=== PATIENT | male | born 1950 | race Caucasian/White ===

== ENCOUNTER 2018-07-20 07:19 | Inpatient (IN) | payer OTHER ==
[~2018-07-20] VITALS: Ht 175.3 cm; Wt 196.2 kg
[2018-07-20] MEDS ORDERED: WARF5TAB PO (07:48)
[2018-07-20] MEDS ORDERED: ACETAMINOPHEN 500 MG TABLET ONE (07:51)
[2018-07-20] MEDS ORDERED: ALBUTEROL/IPRATROPIUM 2.5MG/0.5MG, 3 ML ONE (07:57)
[2018-07-20] MEDS ORDERED: SODIUM CHLORIDE FLUSH 10ML SYR IVF ONE (08:00)
[2018-07-20] MEDS ORDERED: ACETAMINOPHEN 500 MG TABLET PO ONE (08:00)
[2018-07-20] MEDS ORDERED: SODIUM CHLORIDE 0.9% 1,000ML IVBOLUS ONE (08:00)
[2018-07-20] MEDS: ALBUTEROL/IPRATROPIUM 2.5MG/0.5MG, 3 ML NPPB SCH ×2 (08:03→08:11)
[2018-07-20 08:14] LABS: RAPID INFLUENZA A Negative (Negative); RAPID INFLUENZA B Negative (Negative)
[2018-07-20 08:21] LABS: BASOPHILS % (AUTO) 0 % (0-1); EOSINOPHILS % (AUTO) 0 % (1-7); LYMPHOCYTES # (AUTO) 0.86 x10^3/uL (1-3.4); LYMPHOCYTES % (AUTO) 9 % (22-44); MD NO; MEAN CORPUSCULAR HEMOGLOBIN 33.3 pg (27.5-34.5); MEAN CORPUSCULAR HGB CONC 33.7 g/dL (33.2-36.2); MEAN CORPUSCULAR VOLUME 98.8 fL (81-97); MEAN PLATELET VOLUME 8.1 fL (7.4-10.4); MONOCYTES # (AUTO) 0.75 x10^3/uL (0.2-0.8); MONOCYTES % (AUTO) 8 % (2-9); NEUTROPHILS % (AUTO) 84 % (42-75); PLATELET COUNT 144 x10^3/uL (130-400); RED BLOOD COUNT 3.77 x10^6/uL (4.38-5.82); RED CELL DISTRIBUTION WIDTH 15.9 % (9.4-14.8)
[2018-07-20 08:26] LABS: INTERNATIONAL NORMALIZED RATIO 1.2 (0.93-1.1); PROTHROMBIN TIME 12.6 Seconds (9.6-11.5)
[2018-07-20 08:29] LABS: ALANINE AMINOTRANSFERASE 19 U/L (12-78); ALBUMIN 3.3 g/dL (3.4-5.0); ANION GAP 8 mmol/L (5-15); CHLORIDE 107 mmol/L (98-107); CREATININE 1.47 mg/dL (0.7-1.3)
[2018-07-20 08:32] LABS: ALKALINE PHOSPHATASE 82 U/L (45-117); BILIRUBIN,TOTAL 1.8 mg/dL (0.2-1.0); TOTAL PROTEIN 7.2 g/dL (6.4-8.2)
[2018-07-20] MEDS ORDERED: DILTIAZEM 5 MG/ML, 5ML IVPush STA (08:43)
[2018-07-20] MEDS ORDERED: DILTIAZEM 5 MG/ML, 5ML ONE (09:01)
[2018-07-20] MEDS: DILTIAZEM 125 MG in DEXTROSE 5% 100 ML IV SCH ×2 (09:24→13:33)
[2018-07-20 10:02] LABS: CULTURE INDICATED? YES; MICROSCOPIC INDICATED
[2018-07-20] MEDS ORDERED: AZITHROMYCIN 500 MG in SODIUM CHLORIDE 0.9% 250 ML IV ONE (11:00)
[2018-07-20] MEDS ORDERED: CEFTRIAXONE PMX 1GM/50ML 50 ML IV ONE (11:00)
[2018-07-20] MEDS ORDERED: PLEASE ENTER ALLERGIES MC SCH (11:00)
[2018-07-20] MEDS ORDERED: CEFAZOLIN PMX 1GM/50ML 50 ML ONE (11:38)
[2018-07-20 13:13] VITALS: BP 134/83
[2018-07-20 13:31] VITALS: BP 134/83
[2018-07-20] MEDS: DILTIAZEM 60 MG TABLET PO SCH ×2 (15:00→21:11)
[2018-07-20] MEDS ORDERED: TERA10CA3 PO (15:08)
[2018-07-20] MEDS ORDERED: FOLI1TAB PO (15:08)
[2018-07-20] MEDS ORDERED: ALLO300T PO (15:08)
[2018-07-20] MEDS ORDERED: LEVO100T PO (15:08)
[2018-07-20] MEDS ORDERED: METO-282 PO (15:08)
[2018-07-20] MEDS ORDERED: LISI40TA PO (15:08)
[2018-07-20] MEDS ORDERED: METF-365 PO (15:08)
[2018-07-20] MEDS ORDERED: FINA5TAB4 PO (15:08)
[2018-07-20] MEDS ORDERED: DABI150C PO (15:08)
[2018-07-20] MEDS ORDERED: SIMV20TA3 PO (15:08)
[2018-07-20] MEDS ORDERED: PREG200C PO (15:08)
[2018-07-20] MEDS ORDERED: DILTIAZEM 120 MG TABLET ONE (16:16)
[2018-07-20] MEDS: CEFTRIAXONE PMX 2GM/50ML 50 ML IV SCH (16:18)
[2018-07-20] MEDS ORDERED: DEXTROSE 50%, 50ML SYRINGE ONE (16:30)
[2018-07-20 16:33] LABS: HEMOGLOBIN A1C 6.6 % (4.2-6.3)
[2018-07-20] MEDS ORDERED: METOPROLOL TARTRATE 25 MG TABLET PO SCH (18:00)
[2018-07-20 18:39] VITALS: BP 116/74
[2018-07-20] MEDS: AMLODIPINE 5 MG TABLET PO SCH (21:00)
[2018-07-20] MEDS ORDERED: DABIGATRAN 150 MG CAPSULE PO SCH (21:00)
[2018-07-20 21:09] VITALS: BP 125/73
[2018-07-20] MEDS: PREGABALIN 200 MG CAPSULE PO SCH (21:12)
[2018-07-20] MEDS: SIMVASTATIN 20 MG TABLET PO SCH (21:12)
[2018-07-20] MEDS: METOPROLOL SUCCINATE 25 MG TAB.ER.24H PO SCH (21:12)
[2018-07-20] MEDS: ALLOPURINOL 300 MG TABLET PO SCH (21:13)
[2018-07-20] MEDS: DABIGATRAN 150 MG CAPSULE PO SCH (21:13)
[2018-07-20] MEDS: TERAZOSIN 5MG CAPSULE PO SCH (21:16)
[2018-07-20] MEDS: INSULIN LISPRO 100 UNITS/ML, PEN SQ-INSULIN SCH (23:07)
[2018-07-21 00:14] VITALS: BP 102/69
[2018-07-21] MEDS: DILTIAZEM 60 MG TABLET PO SCH ×4 (03:00→21:21)
[2018-07-21] MEDS: LEVOTHYROXINE 100 MCG TABLET PO SCH (05:07)
[2018-07-21 06:12] LABS: ANION GAP 7 mmol/L (5-15); CALCIUM 8.4 mg/dL (8.5-10.1); CHLORIDE 108 mmol/L (98-107); CREATININE 1.43 mg/dL (0.7-1.3)
[2018-07-21 06:44] VITALS: BP 105/73
[2018-07-21] MEDS: INSULIN LISPRO 100 UNITS/ML, PEN SQ-INSULIN SCH ×4 (07:00→21:00)
[2018-07-21] MEDS: FINASTERIDE 5 MG TABLET PO SCH (08:30)
[2018-07-21] MEDS: PREGABALIN 200 MG CAPSULE PO SCH ×2 (08:30→21:20)
[2018-07-21] MEDS: LISINOPRIL 20 MG TABLET PO SCH (08:31)
[2018-07-21] MEDS: AMLODIPINE 5 MG TABLET PO SCH ×2 (08:31→21:00)
[2018-07-21] MEDS: METOPROLOL SUCCINATE 25 MG TAB.ER.24H PO SCH ×2 (08:31→21:22)
[2018-07-21] MEDS: MULTIVITAMINS/MINERALS TABLET PO SCH (08:31)
[2018-07-21 13:36] VITALS: BP 110/78
[2018-07-21] MEDS: CEFTRIAXONE PMX 2GM/50ML 50 ML IV SCH (14:46)
[2018-07-21 19:12] VITALS: BP 107/66
[2018-07-21 21:00] VITALS: BP 123/68
[2018-07-21] MEDS: DABIGATRAN 150 MG CAPSULE PO SCH (21:21)
[2018-07-21] MEDS: TERAZOSIN 5MG CAPSULE PO SCH (21:21)
[2018-07-21] MEDS: SIMVASTATIN 20 MG TABLET PO SCH (21:22)
[2018-07-21] MEDS: ALLOPURINOL 300 MG TABLET PO SCH (21:24)
[2018-07-21] MEDS: INSULIN GLARGINE 100 UNITS/ML, PEN SQ-INSULIN SCH (22:18)
[2018-07-22] VITALS (7 sets, daily range): BP systolic 91–135; BP diastolic 49–76
[2018-07-22] MEDS: DILTIAZEM 60 MG TABLET PO SCH ×4 (03:31→21:44)
[2018-07-22] MEDS: LEVOTHYROXINE 100 MCG TABLET PO SCH (05:29)
[2018-07-22] MEDS: INSULIN LISPRO 100 UNITS/ML, PEN SQ-INSULIN SCH ×4 (07:00→21:42)
[2018-07-22] MEDS: MULTIVITAMINS/MINERALS TABLET PO SCH (08:13)
[2018-07-22] MEDS: PREGABALIN 200 MG CAPSULE PO SCH ×2 (08:13→21:44)
[2018-07-22] MEDS: FINASTERIDE 5 MG TABLET PO SCH (08:13)
[2018-07-22] MEDS: AMLODIPINE 5 MG TABLET PO SCH ×2 (08:23→21:43)
[2018-07-22] MEDS: METOPROLOL SUCCINATE 25 MG TAB.ER.24H PO SCH ×2 (08:24→21:43)
[2018-07-22] MEDS: LISINOPRIL 20 MG TABLET PO SCH (08:24)
[2018-07-22] MEDS: CEFTRIAXONE PMX 2GM/50ML 50 ML IV SCH (15:08)
[2018-07-22] MEDS: INSULIN GLARGINE 100 UNITS/ML, PEN SQ-INSULIN SCH (21:43)
[2018-07-22] MEDS: ALLOPURINOL 300 MG TABLET PO SCH (21:44)
[2018-07-22] MEDS: SIMVASTATIN 20 MG TABLET PO SCH (21:44)
[2018-07-22] MEDS: DABIGATRAN 150 MG CAPSULE PO SCH (21:44)
[2018-07-22] MEDS: TERAZOSIN 5MG CAPSULE PO SCH (21:49)
[2018-07-23 01:58] VITALS: BP 130/72
[2018-07-23] MEDS: DILTIAZEM 60 MG TABLET PO SCH ×4 (03:27→21:32)
[2018-07-23] MEDS: LEVOTHYROXINE 100 MCG TABLET PO SCH (06:00)
[2018-07-23 06:35] VITALS: BP 122/76
[2018-07-23] MEDS: INSULIN LISPRO 100 UNITS/ML, PEN SQ-INSULIN SCH ×4 (07:00→21:33)
[2018-07-23] MEDS: PREGABALIN 200 MG CAPSULE PO SCH ×2 (09:01→21:32)
[2018-07-23] MEDS: FINASTERIDE 5 MG TABLET PO SCH (09:01)
[2018-07-23] MEDS: MULTIVITAMINS/MINERALS TABLET PO SCH (09:01)
[2018-07-23] MEDS: METOPROLOL SUCCINATE 25 MG TAB.ER.24H PO SCH ×2 (09:56→21:32)
[2018-07-23] MEDS: AMLODIPINE 5 MG TABLET PO SCH ×2 (09:56→21:31)
[2018-07-23] MEDS: LISINOPRIL 20 MG TABLET PO SCH (09:56)
[2018-07-23 13:52] VITALS: BP 106/77
[2018-07-23] MEDS: CEFTRIAXONE PMX 2GM/50ML 50 ML IV SCH (14:58)
[2018-07-23 21:02] VITALS: BP 154/84
[2018-07-23] MEDS: TERAZOSIN 5MG CAPSULE PO SCH (21:31)
[2018-07-23] MEDS: DABIGATRAN 150 MG CAPSULE PO SCH (21:31)
[2018-07-23] MEDS: SIMVASTATIN 20 MG TABLET PO SCH (21:32)
[2018-07-23] MEDS: ALLOPURINOL 300 MG TABLET PO SCH (21:32)
[2018-07-23] MEDS: INSULIN GLARGINE 100 UNITS/ML, PEN SQ-INSULIN SCH (21:33)
[2018-07-24 01:00] VITALS: BP 99/68
[2018-07-24] MEDS: DILTIAZEM 60 MG TABLET PO SCH ×4 (03:00→22:35)
[2018-07-24] MEDS: LEVOTHYROXINE 100 MCG TABLET PO SCH (06:00)
[2018-07-24 06:48] VITALS: BP 127/86
[2018-07-24] MEDS: INSULIN LISPRO 100 UNITS/ML, PEN SQ-INSULIN SCH ×4 (08:37→20:50)
[2018-07-24] MEDS: MULTIVITAMINS/MINERALS TABLET PO SCH (08:38)
[2018-07-24] MEDS: METOPROLOL SUCCINATE 25 MG TAB.ER.24H PO SCH ×2 (08:38→20:49)
[2018-07-24] MEDS: AMLODIPINE 5 MG TABLET PO SCH ×2 (08:38→20:49)
[2018-07-24] MEDS: FINASTERIDE 5 MG TABLET PO SCH (08:38)
[2018-07-24] MEDS: PREGABALIN 200 MG CAPSULE PO SCH ×2 (08:38→20:49)
[2018-07-24] MEDS: LISINOPRIL 20 MG TABLET PO SCH (08:38)
[2018-07-24 12:16] VITALS: BP 105/69
[2018-07-24] MEDS: CEFTRIAXONE PMX 2GM/50ML 50 ML IV SCH (14:51)
[2018-07-24 19:55] VITALS: BP 145/99
[2018-07-24] MEDS: TERAZOSIN 5MG CAPSULE PO SCH (20:48)
[2018-07-24] MEDS: SIMVASTATIN 20 MG TABLET PO SCH (20:49)
[2018-07-24] MEDS: ALLOPURINOL 300 MG TABLET PO SCH (20:49)
[2018-07-24] MEDS: DABIGATRAN 150 MG CAPSULE PO SCH (20:49)
[2018-07-24] MEDS: INSULIN GLARGINE 100 UNITS/ML, PEN SQ-INSULIN SCH (20:50)
[2018-07-24 22:32] VITALS: BP 146/78
[2018-07-24] MEDS: ACETAMINOPHEN 325 MG TABLET PO PRN (22:35)
[2018-07-25] VITALS (8 sets, daily range): BP systolic 116–158; BP diastolic 75–89
[2018-07-25] MEDS: DILTIAZEM 60 MG TABLET PO SCH ×4 (05:18→22:33)
[2018-07-25] MEDS: LEVOTHYROXINE 100 MCG TABLET PO SCH (05:18)
[2018-07-25 05:20] LABS: BASOPHILS # (AUTO) 0.01 x10^3/uL (0-0.1); BASOPHILS % (AUTO) 0 % (0-1); EOSINOPHILS % (AUTO) 1 % (1-7); LYMPHOCYTES # (AUTO) 0.96 x10^3/uL (1-3.4); LYMPHOCYTES % (AUTO) 8 % (22-44); MD NO; MEAN CORPUSCULAR HEMOGLOBIN 33.1 pg (27.5-34.5); MEAN CORPUSCULAR HGB CONC 32.9 g/dL (33.2-36.2); MEAN CORPUSCULAR VOLUME 100.4 fL (81-97); MEAN PLATELET VOLUME 8.2 fL (7.4-10.4); MONOCYTES # (AUTO) 0.56 x10^3/uL (0.2-0.8); MONOCYTES % (AUTO) 5 % (2-9); NEUTROPHILS # (AUTO) 10.84 x10^3/uL (1.8-6.8); NEUTROPHILS % (AUTO) 87 % (42-75); PLATELET COUNT 225 x10^3/uL (130-400); RED BLOOD COUNT 3.72 x10^6/uL (4.38-5.82); RED CELL DISTRIBUTION WIDTH 16.3 % (9.4-14.8)
[2018-07-25 05:26] LABS: ANION GAP 5 mmol/L (5-15); CHLORIDE 105 mmol/L (98-107); CREATININE 1.01 mg/dL (0.7-1.3)
[2018-07-25] MEDS: INSULIN LISPRO 100 UNITS/ML, PEN SQ-INSULIN SCH ×5 (07:00→20:19)
[2018-07-25] MEDS: METOPROLOL SUCCINATE 25 MG TAB.ER.24H PO SCH ×2 (08:52→20:14)
[2018-07-25] MEDS: MULTIVITAMINS/MINERALS TABLET PO SCH (08:52)
[2018-07-25] MEDS: AMLODIPINE 5 MG TABLET PO SCH ×2 (08:52→20:15)
[2018-07-25] MEDS: PREGABALIN 200 MG CAPSULE PO SCH ×2 (08:52→20:14)
[2018-07-25] MEDS: FINASTERIDE 5 MG TABLET PO SCH (08:53)
[2018-07-25] MEDS: LISINOPRIL 20 MG TABLET PO SCH (08:53)
[2018-07-25] MEDS: ACETAMINOPHEN 325 MG TABLET PO PRN ×2 (11:24→20:15)
[2018-07-25] MEDS: CEFTRIAXONE PMX 2GM/50ML 50 ML IV SCH (16:05)
[2018-07-25] MEDS: DABIGATRAN 150 MG CAPSULE PO SCH (20:14)
[2018-07-25] MEDS: TERAZOSIN 5MG CAPSULE PO SCH (20:15)
[2018-07-25] MEDS: SIMVASTATIN 20 MG TABLET PO SCH (20:15)
[2018-07-25] MEDS: ALLOPURINOL 300 MG TABLET PO SCH (20:15)
[2018-07-25] MEDS: INSULIN GLARGINE 100 UNITS/ML, PEN SQ-INSULIN SCH (20:19)
[2018-07-26 01:22] VITALS: BP 122/77
[2018-07-26 04:54] VITALS: BP 129/77
[2018-07-26] MEDS: DILTIAZEM 60 MG TABLET PO SCH ×2 (04:58→11:08)
[2018-07-26] MEDS: LEVOTHYROXINE 100 MCG TABLET PO SCH (04:58)
[2018-07-26 06:31] VITALS: BP 149/83
[2018-07-26] MEDS: INSULIN LISPRO 100 UNITS/ML, PEN SQ-INSULIN SCH ×4 (08:05→20:56)
[2018-07-26] MEDS: METOPROLOL SUCCINATE 25 MG TAB.ER.24H PO SCH ×2 (08:06→20:56)
[2018-07-26] MEDS: FINASTERIDE 5 MG TABLET PO SCH (08:06)
[2018-07-26] MEDS: AMLODIPINE 5 MG TABLET PO SCH ×2 (08:06→20:55)
[2018-07-26] MEDS: LISINOPRIL 20 MG TABLET PO SCH (08:06)
[2018-07-26] MEDS: MULTIVITAMINS/MINERALS TABLET PO SCH (08:06)
[2018-07-26] MEDS: PREGABALIN 200 MG CAPSULE PO SCH ×2 (08:06→20:55)
[2018-07-26] MEDS: CEFDINIR 300 MG CAPSULE PO SCH ×2 (11:14→20:56)
[2018-07-26 12:00] VITALS: BP 125/70
[2018-07-26] MEDS ORDERED: POLYETHYLENE GLYCOL 17 GM PACKET PO PRN (18:00)
[2018-07-26 20:37] VITALS: BP 158/87
[2018-07-26] MEDS: DOCUSATE 100 MG CAPSULE PO SCH (20:54)
[2018-07-26] MEDS: TERAZOSIN 5MG CAPSULE PO SCH (20:55)
[2018-07-26] MEDS: DABIGATRAN 150 MG CAPSULE PO SCH (20:56)
[2018-07-26] MEDS: ALLOPURINOL 300 MG TABLET PO SCH (20:56)
[2018-07-26] MEDS: SIMVASTATIN 20 MG TABLET PO SCH (20:56)
[2018-07-26] MEDS: INSULIN GLARGINE 100 UNITS/ML, PEN SQ-INSULIN SCH (20:57)
[2018-07-27 02:52] VITALS: BP 119/66
[2018-07-27] MEDS ORDERED: LEVOTHYROXINE 112 MCG TABLET PO SCH (06:00)
[2018-07-27 06:24] VITALS: BP 141/84
[2018-07-27] MEDS: FINASTERIDE 5 MG TABLET PO SCH (08:23)
[2018-07-27] MEDS: METOPROLOL SUCCINATE 25 MG TAB.ER.24H PO SCH (08:23)
[2018-07-27] MEDS: AMLODIPINE 5 MG TABLET PO SCH (08:23)
[2018-07-27] MEDS: INSULIN LISPRO 100 UNITS/ML, PEN SQ-INSULIN SCH ×3 (08:23→16:22)
[2018-07-27] MEDS: CEFDINIR 300 MG CAPSULE PO SCH (08:23)
[2018-07-27] MEDS: PREGABALIN 200 MG CAPSULE PO SCH (08:23)
[2018-07-27] MEDS: MULTIVITAMINS/MINERALS TABLET PO SCH (08:24)
[2018-07-27] MEDS: DOCUSATE 100 MG CAPSULE PO SCH (08:24)
[2018-07-27] MEDS: LISINOPRIL 20 MG TABLET PO SCH (08:24)
[2018-07-27] MEDS ORDERED: DILTIAZEM 120 MG CAP.ER.24H PO SCH (09:00)
[2018-07-27] MEDS: ACETAMINOPHEN 325 MG TABLET PO PRN (09:42)
[2018-07-27] MEDS ORDERED: BISACODYL 10 MG SUPP PR PRN (10:00)
[2018-07-27] MEDS ORDERED: CEFD300C37 PO (10:50)
[2018-07-27] MEDS ORDERED: INSU100I11 SQ-INSULIN (10:50)
[2018-07-27] MEDS ORDERED: DILT120C9 PO (10:50)
[2018-07-27] MEDS ORDERED: AMLO5TAB7 PO (10:50)
[2018-07-27] MEDS ORDERED: INSU100I13 SQ-INSULIN (10:50)
[2018-07-27] MEDS ORDERED: LEVO112T2 PO (10:50)
[2018-07-27 12:55] VITALS: BP 121/71
[2018-07-27] MEDS ORDERED: PINK LADY ENEMA 490 ML BOTTLE PR ONE ×2 (13:00→13:30)
== END 2018-07-27 17:28 | DRG 871 ==
LOC: ED 08:59 → EDIP 11:42 → 4EST 13:07
PROVIDERS: ADMIT Internal Medicine; ATTEND Internal Medicine
DX: A41.9 Sepsis, unspecified organism (principal); G93.41 Metabolic encephalopathy; J96.01 Acute respiratory failure with hypoxia; D68.69 Other thrombophilia; J44.1 Chronic obstructive pulmonary disease with (acute) exacerbation; J98.11 Atelectasis; N30.00 Acute cystitis without hematuria; Z68.44 Body mass index [BMI] 60.0-69.9, adult; E03.9 Hypothyroidism, unspecified; E11.22 Type 2 diabetes mellitus with diabetic chronic kidney disease; E66.01 Morbid (severe) obesity due to excess calories; G47.33 Obstructive sleep apnea (adult) (pediatric); E78.5 Hyperlipidemia, unspecified; I12.9 Hypertensive chronic kidney disease with stage 1 through stage 4 chronic kidney disease, or unspecified chronic kidney disease; I48.2 Chronic atrial fibrillation; M10.9 Gout, unspecified; N18.3 Chronic kidney disease, stage 3 (moderate); N40.0 Benign prostatic hyperplasia without lower urinary tract symptoms; Z79.01 Long term (current) use of anticoagulants; Z79.4 Long term (current) use of insulin; Z87.891 Personal history of nicotine dependence; Z90.49 Acquired absence of other specified parts of digestive tract; Z66 Do not resuscitate
CPT/HCPCS: 36415; 73564; 73610; 84145; 87400; 99285; J7620; 71045; 78582; 80048; 80053; 81001; 82962; 83036; 83605; 83735; 84100; 84443; 85025; 85610; 87040; 87077; 87086; 87186; 93005; 94640; G0378; J0456; J0696; A9540; A9558; C9898; J1815; J7030; J7050; J7512